=== PATIENT | male | born 1955 | race Caucasian/White ===

== ENCOUNTER 2020-03-04 10:34 | Day surgery (SDC) | payer MEDICARE, OTHER ==
[~2020-03-04] VITALS: Ht 177.8 cm; Wt 86.4 kg
[2020-03-04 11:00] VITALS: BP 117/80
[2020-03-04] MEDS ORDERED: LOSA100T14 PO (11:25)
[2020-03-04] MEDS ORDERED: AMLO-150 PO (11:25)
[2020-03-04 11:38] LABS: BASOPHILS # (AUTO) 0.02 x10^3/uL (0-0.1); BASOPHILS % (AUTO) 1 % (0-1); EOSINOPHILS # (AUTO) 0.15 x10^3/uL (0-0.4); EOSINOPHILS % (AUTO) 4 % (1-7); LYMPHOCYTES % (AUTO) 33 % (22-44); MD NO; MEAN CORPUSCULAR HEMOGLOBIN 30.7 pg (27.5-34.5); MEAN CORPUSCULAR HGB CONC 32.9 g/dL (33.2-36.2); MEAN CORPUSCULAR VOLUME 93.2 fL (81-97); MEAN PLATELET VOLUME 8.4 fL (7.4-10.4); MONOCYTES # (AUTO) 0.32 x10^3/uL (0.2-0.8); MONOCYTES % (AUTO) 9 % (2-9); NEUTROPHILS # (AUTO) 1.99 x10^3/uL (1.8-6.8); NEUTROPHILS % (AUTO) 54 % (42-75); PLATELET COUNT 165 x10^3/uL (130-400); RED CELL DISTRIBUTION WIDTH 13.6 % (9.4-14.8)
[2020-03-04 11:59] LABS: ANION GAP 6 mmol/L (5-15); CALCIUM 8.9 mg/dL (8.5-10.1); CHLORIDE 110 mmol/L (98-107)
[2020-03-04 12:02] LABS: CREATININE 0.73 mg/dL (0.7-1.3)
[2020-03-04] MEDS ORDERED: MIDAZOLAM 1 MG/ML, 5ML ONE (12:27)
[2020-03-04] MEDS ORDERED: FENTANYL PF 100 MCG/2ML ONE (12:27)
[2020-03-04] MEDS ORDERED: HEPARIN 1,000 UNITS/ML, 10ML ONE (12:28)
[2020-03-04] MEDS ORDERED: TICAGRELOR 90 MG TABLET ONE (12:28)
[2020-03-04] MEDS ORDERED: BIVALIRUDIN 250 MG ONE (12:28)
[2020-03-04] MEDS ORDERED: LIDOCAINE-MPF 1%, 5ML ONE (12:28)
[2020-03-04] MEDS ORDERED: VERAPAMIL 2.5 MG/ML, 2ML ONE (12:28)
[2020-03-04] MEDS ORDERED: SODIUM CHLORIDE 0.9% 1,000 ML IV SCH (13:13)
== END 2020-03-04 14:51 | disposition home or self-care (01) ==
LOC: CACL 10:34
PROVIDERS: ATTEND Internal Medicine Cardiovascular Disease
DX: I20.8 Other forms of angina pectoris (principal); I10 Essential (primary) hypertension; N52.9 Male erectile dysfunction, unspecified; Z79.899 Other long term (current) drug therapy; Z80.0 Family history of malignant neoplasm of digestive organs
CPT/HCPCS: 36415; 80048; 85025; 93458; 99156; C1769; C1894; J1644; J2250; J3010; Q9967; J0583